=== PATIENT | male | born 1965 | race Caucasian/White ===

== ENCOUNTER 2018-08-18 21:51 | Emergency (ER) | payer OTHER ==
[~2018-08-18] VITALS: Ht 170.2 cm; Wt 73.2 kg
[2018-08-18 21:52] VITALS: Ht 170.2 cm; Wt 73.2 kg
[2018-08-18] MEDS ORDERED: KETOROLAC 60 MG INJ IM STA (23:03)
--- NOTE | 2018-08-18 23:05 | ERD ---
ER Documentation Chief Complaint Chief Complaint POSSIBLE INFECTED INJECTION SITE; R POSTERIOR HIP HPI 53-year-old male here with possible infected injection site. Apparently patient went to [facility] and got a testosterone shot down there. Patient now says erythema induration there on the buttock. Denies any fevers or chills. Denies any nausea vomiting. "Complains of pain and increased redness and warmth. ROS All systems reviewed and are negative except as per history of present illness. Allergies Allergies: Coded Allergies: No Known Allergy (Unverified , 08/18/18) PMhx/Soc Medical and Surgical Hx: pt denies Medical Hx, pt denies Surgical Hx Hx Alcohol Use: No Hx Substance Use: No Hx Tobacco Use: No Smoking Status: Never smoker Physical Exam Vitals Vital Signs Date Temp Pulse Resp B/P (MAP) Pulse Ox O2 O2 Flow FiO2 Time Delivery Rate 08/18/18 97.6 71 18 130/67 98 21:52 (88) Physical Exam Const: No acute distress Head: Atraumatic Eyes: Normal Conjunctiva ENT: Normal External Ears, Nose and Mouth. Neck: Full range of motion. No meningismus. Resp: Clear to auscultation bilaterally Cardio: Regular rate and rhythm, no murmurs Abd: Soft, non tender, non distended. Normal bowel sounds Skin: There is a 5 x 5 area of erythema and induration. No central fluctuance is noted. Back: No midline or flank tenderness Ext: No cyanosis, or edema Neur: Awake and alert Psych: Normal Mood and Affect Procedures/MDM Emergency department course: Patient seen and evaluated. Given clindamycin 600 mg intramuscularly along with Toradol 60 mg intramuscularly with good pain response. Patient tolerated both injections well. Medical decision makin-year-old with a soft tissue infection. No evidence of abscess. Will be discharged home with clindamycin and Bactrim. He is been asked to follow-up in 24 hours for a wound check otherwise follow-up with PCP. Departure Diagnosis: Primary Impression: Cellulitis Site of cellulitis: buttock Qualified Codes: L03.317 - Cellulitis of buttock Condition: Stable FLOR COE August 18, 2018 23:05
[2018-08-18] MEDS ORDERED: SULF1TAB31 PO (23:06)
[2018-08-18] MEDS ORDERED: CLIN300C10 PO (23:06)
[2018-08-18] MEDS ORDERED: TRAM50TA2 PO (23:08)
[2018-08-18 23:20] VITALS: BP 123/63; PULSE 71; RESP 16
[2018-08-18] MEDS ORDERED: CLINDAMYCIN 300 MG INJ IM ONE (23:30)
[2018-08-18] MEDS ORDERED: CLINDAMYCIN 600 MG INJ IM ONE (23:30)
== END 2018-08-18 23:20 | disposition home or self-care (01) ==
LOC: E/R 21:51
DX: L03.317 Cellulitis of buttock (principal)
CPT/HCPCS: J1885; Z7610; 96372